=== PATIENT | female | born 1950 | race Caucasian/White ===

== ENCOUNTER → 2017-06-13 | Outpatient (CLI) | payer MEDICARE ==
[~2017-06-13] MED LIST: ASPI-555 PO; ATOR40TA71 PO; ESCI10TA54 PO; GABA-529 PO; HYDR-4060 PO; LEVO100T12 PO; LOSA50TA37 PO; OMEP20TA25 PO
== END | disposition home or self-care (01) ==
LOC: OIH 15:52
PROVIDERS: ATTEND Internal Medicine
DX: I10 Essential (primary) hypertension (principal); Z90.49 Acquired absence of other specified parts of digestive tract
CPT/HCPCS: 71046

== ENCOUNTER 2017-06-22 13:00 | Inpatient (IN) | payer MEDICARE ==
[~2017-06-22] VITALS: Ht 162.6 cm; Wt 104.2 kg
[2017-06-22 13:45] VITALS: BP 125/64
[2017-06-22 13:45] LABS: BASOPHILS % (AUTO) 0.8 % (0.0-5.0); HEMATOCRIT 40.2 % (36-48); MEAN CORPUSCULAR HEMOGLOBIN 27.9 pg (27.0-33.0); MEAN CORPUSCULAR HGB CONC 32.5 g/dL (32.0-36.0); MEAN CORPUSCULAR VOLUME 85.9 fL (79-99); NEUTROPHILS % (AUTO) 68.2 % (40.0-77.0); PLATELET COUNT (AUTO) 363 K/uL (130-400); RED BLOOD CELL COUNT(AUTO) 4.68 MIL/uL (4.00-5.50); RED CELL DISTRIBUTION WIDTH 14.9 % (11.0-15.5); WHITE BLOOD COUNT (AUTO) 11.8 K/uL (4.8-10.8)
[2017-06-22 13:56] LABS: CREATININE 1.4 mg/dL (0.5-1.5); POTASSIUM 4.3 mmol/L (3.5-5.1)
[2017-06-22] MEDS ORDERED: ESCI10TA54 PO (14:35)
[2017-06-22] MEDS ORDERED: LOSA50TA37 PO (14:35)
[2017-06-22] MEDS ORDERED: HYDR-4060 PO (14:35)
[2017-06-22] MEDS ORDERED: LEVO100T12 PO (14:35)
[2017-06-22] MEDS ORDERED: OMEP20TA25 PO (14:35)
[2017-06-22] MEDS ORDERED: ATOR40TA71 PO (14:35)
[2017-06-22] MEDS ORDERED: ASPI-555 PO (14:35)
[2017-06-22] MEDS ORDERED: GABA-529 PO (14:35)
[2017-06-26] VITALS (24 sets, daily range): BP systolic 107–156; BP diastolic 46–79
[2017-06-26] MEDS: CEFAZOLIN SODIUM 1 GM VIAL IVP SCH ×2 (06:00→08:00)
[2017-06-26] MEDS ORDERED: BUPIVACAINE/PF 0.25% 30ML VIAL IJ ONE (06:29)
[2017-06-26] MEDS ORDERED: DURAMORPH PF1 MG/ML 10ML AMP IV ONE (06:29)
[2017-06-26] MEDS ORDERED: THROMBIN-JMI 20000 UNIT KIT TP ONE (06:30)
[2017-06-26] MEDS ORDERED: BACITRACIN 50,000 UNIT VIAL ONE (06:30)
[2017-06-26] MEDS ORDERED: EPINEPHRINE 1 MG/ML AMPULE ONE (06:30)
[2017-06-26] MEDS ORDERED: LACTATED RINGERS 1000ML 1,000 ML IV ONE (06:42)
[2017-06-26] MEDS ORDERED: ONDANSETRON HCL 4 MG/2 ML VIAL ONE (06:59)
[2017-06-26] MEDS ORDERED: DEXAMETHASONE SOD PHOSPHATE 10MG/ML 1ML VIAL ONE ×2 (06:59→10:21)
[2017-06-26] MEDS ORDERED: MIDAZOLAM HCL 1 MG/ML 2ML VIAL ONE ×2 (06:59→07:32)
[2017-06-26] MEDS ORDERED: NEOSTIGMINE 5MG/5ML SYR IV ONE ×2 (06:59→10:41)
[2017-06-26] MEDS ORDERED: GLYCOPYRROLATE 0.2 MG/ML 5 ML VIAL ONE (06:59)
[2017-06-26] MEDS ORDERED: PROPOFOL 10 MG/ML 20ML VIAL IV ONE (06:59)
[2017-06-26] MEDS ORDERED: LIDOCAINE PF 2% 5ML ABBOJECT ONE (06:59)
[2017-06-26] MEDS ORDERED: FENTANYL CITRATE PF 50 MCG/1 ML 2ML VIAL ONE ×5 (07:00→10:49)
[2017-06-26] MEDS ORDERED: ROCURONIUM BROMIDE 10MG/1ML 5ML VL ONE ×2 (07:02→10:20)
[2017-06-26] MEDS ORDERED: EPHEDRINE SULFATE 50 MG/ML AMPULE ONE (07:08)
[2017-06-26 07:38] LABS: BASOPHILS % (AUTO) 0.8 % (0.0-5.0); EOSINOPHILS % (AUTO) 2.5 % (0.0-8.0); HEMATOCRIT 38.9 % (36-48); LYMPHOCYTES % (AUTO) 24.4 % (21.0-51.0); MEAN CORPUSCULAR HEMOGLOBIN 27.8 pg (27.0-33.0); MEAN CORPUSCULAR HGB CONC 32.4 g/dL (32.0-36.0); MONOCYTES % (AUTO) 8.1 % (3.0-13.0); NEUTROPHILS % (AUTO) 64.2 % (40.0-77.0); PLATELET COUNT (AUTO) 321 K/uL (130-400); RED BLOOD CELL COUNT(AUTO) 4.53 MIL/uL (4.00-5.50); RED CELL DISTRIBUTION WIDTH 14.8 % (11.0-15.5)
[2017-06-26] MEDS ORDERED: SUCCINYLCHOLINE CHLORIDE 20 MG/ML 10 ML VIAL ONE ×2 (10:20)
[2017-06-26] MEDS ORDERED: METOCLOPRAMIDE 10 MG/2 ML VIAL ONE (10:21)
[2017-06-26] MEDS ORDERED: ROPIVACAINE 0.5% 5MG/ML 30ML IJ ONE (10:21)
[2017-06-26] MEDS ORDERED: LIDOCAINE HCL 4% LTA SOL 4 ML VIAL ONE ×2 (10:21→10:22)
[2017-06-26] MEDS ORDERED: ONDANSETRON HCL MDV 20ML 2 MG/ML VIAL ONE ×2 (10:21)
[2017-06-26] MEDS ORDERED: ARTIFICIAL TEARS 3.5 GM OINTMENT ONE (10:22)
[2017-06-26] MEDS: DEXAMETHASONE SOD PHOSPHATE 4 MG/ML 1ML VIAL IVP SCH ×3 (11:15→23:03)
[2017-06-26] MEDS ORDERED: SODIUM CHLORIDE 0.9% 10 ML VIAL IVP PRN (11:15)
[2017-06-26] MEDS ORDERED: PROMETHAZINE HCL 25 MG/ML 1ML AMPULE IM PRN (11:15)
[2017-06-26] MEDS ORDERED: MORPHINE SULFATE 2 MG/ML 1ML SYG IVP PRN (11:15)
[2017-06-26] MEDS ORDERED: CEFAZOLIN 2GM / 50 ML 50 ML IV SCH (11:15)
[2017-06-26] MEDS ORDERED: HYDROCODONE/ACETAMINOPHEN 5/325 MG TAB PO PRN (11:15)
[2017-06-26] MEDS ORDERED: MEPERIDINE-PF 25 MG/ML SYG ONE (11:25)
[2017-06-26] MEDS ORDERED: LABETALOL HCL 5 MG/ML 20ML VIAL IV ONE (12:04)
[2017-06-26] MEDS ORDERED: CEFAZOLIN SODIUM 1 GM VIAL IVP SCH (12:15)
[2017-06-26] MEDS: LACTATED RINGERS 1000ML 1,000 ML IV SCH (13:14)
[2017-06-26] MEDS: GABAPENTIN 100 MG CAPSULE PO SCH ×2 (14:34→19:58)
[2017-06-26] MEDS: HYDROCODONE/ACETAMINOPHEN 5/325 MG TAB PO SCH ×2 (15:55→20:39)
[2017-06-26] MEDS ORDERED: PANTOPRAZOLE SODIUM 40 MG TABLET.DR PO SCH (21:00)
[2017-06-26] MEDS ORDERED: ATORVASTATIN CALCIUM 40 MG TABLET PO SCH (21:00)
[2017-06-26] MEDS ORDERED: ASPIRIN 81 MG EC TAB PO SCH (21:00)
[2017-06-26] MEDS ORDERED: CITALOPRAM 20 MG TABLET PO SCH (21:00)
[2017-06-26] MEDS ORDERED: LOSARTAN 50 MG TABLET PO SCH (21:00)
[2017-06-26] MEDS ORDERED: MORPHINE SULFATE 4 MG/1ML SYG ONE (22:17)
[2017-06-27] MEDS: LACTATED RINGERS 1000ML 1,000 ML IV SCH (00:24)
[2017-06-27 04:13] VITALS: BP 124/56
[2017-06-27] MEDS: DEXAMETHASONE SOD PHOSPHATE 4 MG/ML 1ML VIAL IVP SCH (05:15)
[2017-06-27] MEDS ORDERED: LEVOTHYROXINE 100 MCG TABLET ONE (05:16)
[2017-06-27] MEDS ORDERED: LEVOTHYROXINE 100 MCG TABLET PO SCH (06:30)
[2017-06-27 07:00] VITALS: BP 131/61
[2017-06-27] MEDS: GABAPENTIN 100 MG CAPSULE PO SCH (08:42)
== END 2017-06-27 10:05 | disposition home or self-care (01) | DRG 517 ==
LOC: EDSTATUS 13:00 → DAHIP 06-26 05:39 → 4AH 06-26 13:02
PROVIDERS: ADMIT Internal Medicine; ATTEND Neurological Surgery
PROC: 01NB0ZZ Release Lumbar Nerve, Open Approach (ICD-10-PCS; principal; 2017-06-26 07:30)
PROC: 3E0R3BZ Introduction of Anesthetic Agent into Spinal Canal, Percutaneous Approach (ICD-10-PCS; 2017-06-26 07:30)
PROC: BR101ZZ Fluoroscopy of Cervical Spine using Low Osmolar Contrast (ICD-10-PCS; 2017-06-26 07:30)
DX: M48.061 Spinal stenosis, lumbar region without neurogenic claudication (principal); E03.9 Hypothyroidism, unspecified; F32.9 Major depressive disorder, single episode, unspecified; E66.9 Obesity, unspecified; I10 Essential (primary) hypertension; Z79.82 Long term (current) use of aspirin; Z86.73 Personal history of transient ischemic attack (TIA), and cerebral infarction without residual deficits; Z68.39 Body mass index [BMI] 39.0-39.9, adult; Z88.8 Allergy status to other drugs, medicaments and biological substances
CPT/HCPCS: 36415; 72020; 80048; 85025; A4218; A4344; J0171; J0330; J0690; J1100; J2001; J2175; J2250; J2270; J2274; J2405; J2704; J2710; J2765; J2795; J3010; J3490; J7030; J7120

== ENCOUNTER → 2018-03-08 | Outpatient (CLI) | payer MEDICARE ==
[~2018-03-08] MED LIST changes: -LOSA50TA37 PO; +LOSA50TA64 PO
== END | disposition home or self-care (01) ==
LOC: OIH 10:39
PROVIDERS: ATTEND Internal Medicine
DX: J45.40 Moderate persistent asthma, uncomplicated (principal); M47.815 Spondylosis without myelopathy or radiculopathy, thoracolumbar region
CPT/HCPCS: 71046

== ENCOUNTER → 2020-06-07 | Outpatient (CLI) | payer MEDICARE ==
[~2020-06-07] MED LIST changes: -ASPI-555 PO; +ASPI-556 PO; +ESCI-8 PO; -ESCI10TA54 PO
== END | disposition home or self-care (01) ==
LOC: RAH 09:50
PROVIDERS: ATTEND Internal Medicine
DX: N20.0 Calculus of kidney (principal); R10.9 Unspecified abdominal pain; M43.8X6 Other specified deforming dorsopathies, lumbar region
CPT/HCPCS: 74018; 76770

== ENCOUNTER → 2020-10-04 | Outpatient (CLI) | payer MEDICARE | END | disposition home or self-care (01) | LOC: RAH 13:46 | PROVIDERS: ATTEND Internal Medicine | DX: J45.991 Cough variant asthma (principal); J45.40 Moderate persistent asthma, uncomplicated | CPT/HCPCS: 71046 ==